=== PATIENT | male | born 1950 | race Caucasian/White ===

== ENCOUNTER → 2021-03-23 10:23 | Outpatient (CLI) | payer MEDICARE, SELFPAY ==
--- NOTE | 2021-03-23 10:32 | XR_ITS ---
PROCEDURE: XR CHEST 2V CLINICAL HISTORY: CARDIAC DYSRHYTHMIA, UNSPECIFIED COMPARISON: No exams were available for comparison FINDINGS: The cardiomediastinal silhouette and pulmonary vascularity are within normal limits. The lungs are clear without infiltrates, suspicious nodules, or pleural effusions. Minor degenerative changes of the visualized thoracic spine. IMPRESSION: No acute findings. Dictated by: Charmaine Blair 03/23/2021 11:21 Charmaine Blair in OV 03/23/2021 11:21
--- NOTE | 2021-03-23 10:52 | CA_ITS ---
APPROVED REPORT EXAM: Comprehensive 2D, Doppler, and color-flow Echocardiogram [employer] Bus Driver: Yana Patel RVT Ht: 5 ft 10 in Wt: 172lbs BSA: 1.96 BP: 123/65 mmHg Indications: ARRHYTHMIA,SMOKER 2D Dimensions LVOT 2.30 cm (M/F) 1.5-2.5 LA Volume 27.90 mL LA Volume Index 14.30 mL/m2 (M/F) 16-34 M-Mode Dimensions RVDd 3.87 cm (0.9-2.6) LA Diam 3.51 cm (1.9-4.0) LVDd 4.02 cm (3.5-5.7) Ao Diam 2.93 cm (2.0-3.7) LVDs 3.00 cm (3.5-5.7) IVSd 1.48 cm (0.6-1.1) PWd 0.95 cm (0.6-1.1) EF (Teich) 50.60% FS 25.40% EDV (Teich) 70.80 mL TAPSE 2.91 (<1.7) ESV (Teich) 35.00 mL LV Diastology E Decel Time 227.00 (160-240 msec) E/A Ratio 1.2 MED E' 10.40 (< 7 cm/sec) E'/MED E' Ratio 7.06 (>14) LAT E' 9.10 (<10 cm/sec) E/LAT E' Ratio 8.07 (>14) Aortic Valve AO Peak GR. 6.60 mmHg Mitral Valve MV E Max Andrew. 73.00 (40-130 cm/s) MV A Velocity 61.00 (40-130 cm/s) E/A Ratio 1.20 MV Decel. Time 227.00 (160-240 ms) MV PHT 66.00 ms Pulmonary Valve PV Peak Velocity 56.00 (50-150 cm/s) Tricuspid Valve TR P. Velocity 228.00 cm/s RAP Estimate 10.00 mmHg RVSP 30.80 mmHg Left Ventricle Left atrium is mildly enlarged, left ventricle is normal size, there is no concentric left ventricular hypertrophy, visually estimated ejection fraction 55% with no regional wall motion abnormality, diastolic parameters are inconclusive. Right Ventricle Right atrium and right ventricle are mildly enlarged with normal contractility. Aortic Valve Aortic valve is minimally thickened and fibrosed, there is no aortic stenosis or aortic insufficiency. Mitral Valve Mitral valve grossly normal, there is trace mitral regurgitation. Tricuspid Valve Tricuspid grossly normal, there is trace tricuspid regurgitation, tricuspid regurgitation jet velocity is inadequate for calculation of the right ventricular systolic pressure. Pulmonic Valve Pulmonic valve is poorly visualized. Great Vessels Aortic root is normal size. Pericardium No significant pericardial effusion noted. Conclusion 1. Mild biatrial enlargement, normal left ventricular size, visually estimated ejection fraction 55% with no regional wall motion abnormality, diastolic parameters are inconclusive. 2. Mildly enlarged right ventricle with normal contractility. 3. Trace mitral and tricuspid regurgitation. 4. No significant pericardial effusion noted. Electronically signed by : Mike Camejo, 03/23/2021 18:07:32
--- NOTE | 2021-03-23 10:59 | ECG_ITS ---
APPROVED REPORT Exam: Resting ECG HR:48 bpm ECG Measurements Heart Rate 48 AXES MS 186 P 71 QRSd 94 QRS -5 QT 434 T 13 QTc 387 Conclusion Marked sinus bradycardia with premature atrial complexes Abnormal ECG Electronically signed by : Naresh Braga, 03/25/2021 14:31:41
== END ==
PROVIDERS: PCP Family Medicine; Visit Provider Family Medicine
DX: I49.9 Cardiac arrhythmia, unspecified (principal); R94.31 Abnormal electrocardiogram [ECG] [EKG]
CPT/HCPCS: 71046; 93005; 93306

== ENCOUNTER → 2021-12-08 07:39 | Outpatient (CLI) | payer MEDICARE, SELFPAY ==
--- NOTE | 2021-12-08 | CA_ITS ---
APPROVED REPORT Exam: Exercise Treadmill Technologist: Merle Loredo Ht: 5 ft 10 in Wt: 175 lbs BSA: 1.97 m2 HR: 40 bpm BP: 127/72 mmHg Indications: Epigastric pain, GERD Medical History Medications: No home meds,,,,, Stress Test Details Test: Daniel HR Resting HR: 55 bpm Max Heart Rate (APMHR): 151.834564 bpm Max HR Achieved: 135 bpm Target HR (85% APMHR): 128.117742 bpm % of APMHR: 89.40 Recovery HR: 75 bpm BP Resting BP: 130.0/68.0 mmHg Max BP: 186.0/68.0 mmHg Recovery BP: 133.0/58.0 mmHg ECG Resting ECG: Marked sinus bradycardia, PACs Clinical Exercise duration: 08:45 min Highest Stage Achieved: Exercise capacity: 10.1 METs Stress ECG Conclusion Patient exercised 8:45 on Daniel Protocol, into stage III. Test stopped due to shortness of air, leg fatigue. Symptoms: Shortness of air, leg fatigue. No chest pain. Arrhythmias/Ectopy: Occasional PVC. Occasional PAC. Sudden, brief changes in heart rate during recovery. ST-T Changes: Normal ST response to exercise. Conclusion: No ischemic changes or chest pain. Marked bradycardia in pretest and varied heart rate in recovery. May indicate sinus node disease (e.g. samanta-tachy syndrome). Myoview images reported separately. Electronically signed by : Mike Camejo MD 12/08/2021 20:38:59
--- NOTE | 2021-12-08 07:43 | NM_ITS ---
APPROVED REPORT Exam: Nuclear Stress Test Indication: HYPERLIPIDEMIA, TOB USE, FM HX, C.P. Patient Location: Outpatient Stress Tech: Merle Loredo AL Tech:JUAN Jones RT (R)(N)(M) Ht: 5 ft 10 in Wt: 175 lbs HR: 40 bpm BP: 127/72 mmHg BSA: 1.97 m2 BMI: 25.1 History: HYPERLIPIDEMIA, TOB USE, FM HX, C.P. Procedure: Patient exercised on Daniel protocol 8:45 minutes and sec, resting heart rate 40 bpm, resting blood pressure 127/72 mmHg, with exercise maximum heart rate achived was 112 bpm which is 89 % of the maximum predicted heart rate and blood pressure was 170/60 mmHg. Test was stopped due to FATIGUE. Patient denied any complaint of chest pain. Patient has good exercise capacity, achieved 10.1 METs of workload on treadmill, the blood pressure response to exercise was Adequate. Electrocardiogram Resting electrocardiogram shows sinus rhythm with exercise there is less than 1.[address] segment depression noted from the baseline EKG. The EKG portion of the exercise Myoview is negative for ischemia. Cardiac Stress and Resting SPECT Images: Cardiac Stress and Resting SPECT images were obtained using technetium 99m Myoview 31.1 mCi stress and 10.37 mCi at rest. Gated SPECT for analysis of segmental wall motion and calculation of the ejection fraction also done. Cardiac stress and resting SPECT images show uniform myocardial activity without segmental perfusion abnormality, consider ejection fraction is 45% with no regional wall motion abnormality, right ventricle is normal size and contractility. Conclusion: 1. The EKG portion of the exercise Myoview is negative for ischemia, patient is good exercise capacity achieved 10.1 METs of workload on treadmill, the blood pressure response to exercise was adequate, there was no exercise-induced chest discomfort. 2. No scintigraphic evidence of reversible ischemia seen at this level of exercise, compared to ejection fraction 45% with no regional wall motion abnormality, right ventricle is normal size and contractility. 3. Normal exercise Myoview study. Electronically signed by : Mike Camejo MD 12/08/2021 20:41:52
== END ==
PROVIDERS: PCP Family Medicine; Visit Provider Family Medicine
DX: R10.13 Epigastric pain (principal); R06.09 Other forms of dyspnea; R07.89 Other chest pain; E78.5 Hyperlipidemia, unspecified; Z82.49 Family history of ischemic heart disease and other diseases of the circulatory system; Z72.0 Tobacco use; R94.31 Abnormal electrocardiogram [ECG] [EKG]
CPT/HCPCS: 78452; 93017; A9502

== ENCOUNTER → 2023-03-01 08:49 | Outpatient (CLI) | payer MEDICARE, SELFPAY ==
[2023-03-01 18:39] LABS: Basophils # 0.1 K/mm3 (0-0.2); Basophils % 0.8 % (0.1-2.0); Eosinophils # 0.3 K/mm3 (0.0-0.4); Hematocrit 48.6 % (42.0-52.0); Hemoglobin 15.1 g/dL (14.1-18.0); Lymphocytes # 2.8 K/mm3 (0.7-4.5); Lymphocytes % 36.3 % (10-50); Mean Corpuscular HGB Conc 31.2 g/dL (31.8-35.4); Mean Corpuscular Hemoglobin 30.8 pg (27.0-31.2); Mean Corpuscular Volume 98.9 fl (80-94); Mean Platelet Volume 9.4 fl (7.4-10.4); Monocytes # 0.6 K/mm3 (0.1-1.0); Monocytes % 7.7 % (1.7-9.3); Neutrophils # 3.9 K/mm3 (1.8-7.8); Neutrophils % 51.2 % (37.0-80.0); Platelet Count 289 K/mm3 (142-424); Red Blood Count 4.92 M/mm3 (4.60-6.20); Red Cell Distribution Width 13.7 % (11.5-17.5); White Blood Count 7.7 K/mm3 (4.8-10.8)
[2023-03-01 18:40] LABS: Chloride 103 mmol/L (98-107); Potassium 4.8 mmoL/L (3.5-5.1); Sodium 138 mmol/L (136-145)
[2023-03-01 18:43] LABS: Alanine Aminotransferase 14 U/L (12-78); Albumin Level 3.9 g/dl (3.5-5.0); Albumin/Globulin Ratio 1.4 (1.1-1.8); Alkaline Phosphatase 97 U/L (38-126); Amylase 102 U/L (30-110); Anion Gap 12.8 mEq/L (5-15); Aspartate Amino Transferase 20 U/L (17-59); Bilirubin,Total 0.5 mg/dl (0.2-1.3); Blood Urea Nitrogen 16 mg/dl (9-20); Calcium 9.3 mg/dl (8.4-10.2); Carbon Dioxide 27 mmol/L (22.0-30.0); Estimated Glomerular Filt Rate 60 ml/min (>60); GFR (African American) 72 ML/MIN (>60); Globulin 2.7 g/dL (1.3-3.2); Glucose 87 mg/dl (74-100); Lipase 323 U/L (23-300); Total Protein,Serum 6.6 g/dl (6.3-8.2)
== END ==
PROVIDERS: PCP Nurse Practitioner; Visit Provider Nurse Practitioner
DX: R10.13 Epigastric pain (principal); R10.9 Unspecified abdominal pain; R11.2 Nausea with vomiting, unspecified
CPT/HCPCS: 80053; 82150; 83690; 85025

== ENCOUNTER → 2023-03-02 18:59 | Outpatient (CLI) | payer MEDICARE, SELFPAY ==
[2023-03-05 09:09] LABS: H. pylori Stool Ag, EIA Positive (Negative)
== END ==
PROVIDERS: PCP Nurse Practitioner; Visit Provider Nurse Practitioner
DX: R10.13 Epigastric pain (principal); R11.2 Nausea with vomiting, unspecified
CPT/HCPCS: 87338

== ENCOUNTER → 2023-03-03 11:57 | Outpatient (CLI) | payer MEDICARE, SELFPAY ==
--- NOTE | 2023-03-03 12:03 | CT_ITS ---
FINAL REPORT TECHNIQUE: Axial CT images of the abdomen were obtained with IV contrast only. Coronal reformatted images were also obtained. This study was performed with techniques to keep radiation doses as low as reasonably achievable (ALARA). Individualized dose reduction techniques using automated exposure control or adjustment of mA and/or kV according to the patient''s size were employed. CLINICAL HISTORY: elevated lipase, epigastric pain, nausea/vomiting FINDINGS: The lung bases are clear. The liver has an unremarkable appearance, without evidence of mass. The gallbladder appears normal without evidence of gallstones. There is no evidence of biliary ductal dilatation. The pancreas appears normal. The spleen size is within normal limits. There is no evidence of renal mass or hydronephrosis. There is no evidence of adenopathy. No abnormal fluid collection is seen. No localized inflammatory processes identified. IMPRESSION: No mass or localized inflammatory process identified. Reviewed, Interpreted and Dictated by Lazaro Parry III, MD Transcribed by Annmarie Cespedes Authenticated and [facility]
--- NOTE | 2023-03-03 12:12 | US_ITS ---
FINAL REPORT CLINICAL HISTORY: epigastric pain with nausea and vomiting FINDINGS: Sonographic images of the right upper quadrant were obtained. The pancreas is partially obscured.The liver has an unremarkable appearance.The gallbladder appears normal without evidence of gallstones.There is no evidence of biliary ductal dilatation.The common duct measures 2 mm. Limited images of the right kidney are unremarkable. IMPRESSION: Unremarkable right upper quadrant ultrasound. Reviewed, Interpreted and Dictated by Lazaro Parry III, MD Transcribed by Aditi Hermosillo Authenticated and [facility]
== END ==
PROVIDERS: PCP Family Medicine; Visit Provider Nurse Practitioner
DX: R10.13 Epigastric pain (principal); R11.2 Nausea with vomiting, unspecified; R74.8 Abnormal levels of other serum enzymes
CPT/HCPCS: 74160; 76705; Q9967

== ENCOUNTER 2025-02-18 11:22 | Outpatient (CLI) | payer MEDICARE, SELFPAY ==
--- OUTSIDE RECORDS SUMMARY | 2024-09-26 06:00 | XMS_ITS | Continuity of Care Document ---
Author Name [facility] Organization [facility] Care Team Providers Care Accounting Manager Name Role Phone [facility] Unavailable Unavailable Problems Combined list of problems from Department of Defense and [facility] facilities. It does not include entries that were removed or entered in error. Problem Status Onset Date Problem Type Date of Resolution Comments Source Diagnosis: ICD-10-CM Z46.1 Encounter for fitting and adjustment of hearing aid Active Diagnosis [facility] Diagnosis: ICD-10-CM H90.3 Sensorineural hearing loss, bilateral Active Diagnosis [facility] Diagnosis: ICD-10-CM H25.11 Age-related nuclear cataract, right eye Active Diagnosis [facility] Encounters Combined list of: 1) Encounters from Department of Veterans Affairs facilities going backup to the last 18 months, not all VA inpatient encounters are included; 2) Encounters from the Department of [facility] facilities going backup to 280 months. Location Location Details Encounter Type Encounter Number Reason For Visit Attending Provider ADM Date DC Date Status Disposition Source [facility] SPEECH AUDIOMETRY COMPLETE [id number] Diagnos is: ICD-10- CM H90.3 Sensori neural hearing loss, bilater al RADHA CASILLAS Rober 10/30 [facility] CONFORMITY EVALUATION [id number] Diagnos is: ICD-10- CM Z46.1 Encount er for fitting and adjustm ent of hearing aid RADHA CASILLAS Rober 11/15 [facility] En[facility] [id number] 11/16 [facility] HEARING AID REPAIR/MOD IFYING [id number] Diagnos is: ICD-10- CM Z46.1 Encount er for fitting and adjustm ent of hearing aid EV PADILLA 07/08 [facility] Outpatient Encounter [id number] 08/05 [facility] En[facility] [id number] 08/05 [facility] COMPRE OPH EXAM NEW PT 1/> [id number] Diagnos is: ICD-10- CM H25.11 Age-rel ated nuclear catarac t, right eye ROMANA MAN MELLISA 08/06 [facility] COMPREHENS LUISA HEARING TEST [id number] Diagnos is: ICD-10- CM H90.3 Sensori neural hearing loss, bilater al EV PADILLA ROSEMARY 08/23 [facility] CONFORMITY EVALUATION [id number] Diagnos is: ICD-10- CM Z46.1 Encount er for fitting and adjustm ent of hearing aid EV PADILLA ROSEMARY [facility]
[2025-02-18 18:59] LABS: Basophils # 0.1 K/mm3 (0-0.2); Basophils % 1.2 % (0.1-2.0); Eosinophils # 0.3 Kmm3 (0.0-0.4); Hematocrit 41.1 % (42.0-52.0); Hemoglobin 13.9 g/dL (14.1-18.0); Immature Granulocytes # 0.01 10^3uL; Immature Granulocytes % 0.2 %; Lymphocytes # 2.3 K/mm3 (0.7-4.5); Lymphocytes % 39.5 % (10-50); Mean Corpuscular HGB Conc 33.8 g/dL (31.8-35.4); Mean Corpuscular Hemoglobin 32.2 pg (27.0-31.2); Mean Corpuscular Volume 95.1 fl (80-94); Mean Platelet Volume 10.1 fl (7.4-10.4); Monocytes # 0.5 K/mm3 (0.1-1.0); Monocytes % 8.5 % (1.7-9.3); Neutrophils # 2.6 K/mm3 (1.8-7.8); Neutrophils % 45.6 % (37.0-80.0); Nucleated Red Blood Cells # 0 10^3/uL; Nucleated Red Blood Cells % 0 %; Platelet Count 252 K/mm3 (142-424); Red Blood Count 4.32 M/mm3 (4.60-6.20); White Blood Count 5.8 K/mm3 (4.8-10.8)
[2025-02-18 19:18] LABS: Microalbumin/Creatinine Ratio 70.3
[2025-02-18 19:19] LABS: Creatinine,Urine Random 29 mg/dL (Not Estab.)
[2025-02-18 19:48] LABS: Alanine Aminotransferase 16 U/L (12-78); Albumin/Globulin Ratio 1.5 (1.1-1.8); Alkaline Phosphatase 97 U/L (38-126); Anion Gap 5.2 mEq/L (5-15); Aspartate Amino Transferase 21 U/L (17-59); Bilirubin,Total 0.6 mg/dl (0.2-1.3); Blood Urea Nitrogen 16 mg/dl (9-20); Calcium 9.8 mg/dl (8.4-10.2); Carbon Dioxide 27 mmol/L (22.0-30.0); Chloride 109 mmol/L (98-107); Chol/HDL Ratio 5.8 (1-3.5); Cholesterol 193 mg/dl (140-200); Estimated Glomerular Filt Rate 60 ml/min (>60); GFR (African American) 72 ML/MIN (>60); Globulin 2.6 g/dL (1.3-3.2); Glucose 100 mg/dl (74-100); HDL Cholesterol 33 mg/dl (40-60); Potassium 4.2 mmoL/L (3.5-5.1); Sodium 137 mmol/L (136-145); Total Protein,Serum 6.6 g/dl (6.3-8.2); Triglycerides 168 mg/dl (30-150); VLDL Cholesterol 34 mg/dL (0-40)
[2025-02-18 19:59] LABS: Direct LDL Cholesterol 122.95 mg/dL (100-129)
[2025-02-18 20:20] LABS: Prostate Specific Ag Screen 0.9 ng/ml (0.0-4.0); Thyroid Stimulating Hormone 3.29 uIU/mL (0.465-4.68)
[2025-02-18 20:37] LABS: Vitamin B12 614 pg/mL (239-931)
--- OUTSIDE RECORDS SUMMARY | 2025-02-19 09:34 | XMS_ITS | Clinical Summary ---
Author Organization [facility] Address [address] [place] [address] Phone Care Team Providers Care Real Estate Operations Manager Name Role Phone Unavailable Primary Care Provider Unavailabl e Allergies No known active allergies Medications diclofenac (VOLTAREN) 75 mg Oral Tablet, Delayed Release (E.C.)Indication s:Knee injuries, right, initial encounter Take 1 Tab by mouth 2 times daily (with meals). 30 Tab 2 12/14/2020 Active rosuvastatin (CRESTOR) 5 mg Oral TabletIndication s:Hypercholester emia Take 1 Tab by mouth nightly. 90 Tab 3 12/14/2020 Active Active Problems Problem Noted Date Diagnosed Date ED (erectile dysfunction) 09/22/2012 Needs smoking cessation education 09/22/2012 Hypercholesteremia 12/17/2010 Resolved Problems Problem Noted Date Diagnosed Date Resolved Date FH: hypercholesterolemia 12/17/2010 Immunizations Immunization Administration Dates Next Due Pneumococcal Conjugate Vaccine 13 Valent 017 Pneumococcal Polysaccharide 23 Valent 10/22/2018 Td, Unspecified Formulation 10/21/2008 Tdap 11/17/2014 Zoster 11/17/2014 Surgical History Surgery Date Site/Laterality Comments COLONOSCOPY 09/21/06 f/u 10 years Social History Tobacco Use Types Packs/Day Years Used Date Smoking Tobacco: Every Day Cigarettes 1 52.5 Started: 09/04/1972 Smokeless Tobacco: Never Tobacco Cessation:Ready to Q uit: No; Counseling Given: No Comments:cutting back on smoking. Alcohol Use Standard Drinks/Week Comments Not Asked 0 (1 standard drink = 0.6 oz pur e alcohol) PHQ-2 Answer Date Recorded PHQ-2 Total Score 0 08/13/2020 Sex and Gender Information Value Date Recorded Sex Assigned at Not on file Legal Sex Male 7:31 PM EDT Gender Identity Not on file Sexual Orientation Not on file Obstetrics History Last Filed Vital Signs Vital Sign Reading Time Taken Comments Blood Pressure 94/60 08/13/2020 7:52 AM EST Pulse 58 08/13/2020 7:52 AM EST Temperature 36.7 C (98 F) 12/14/2020 2:21 PM EDT Respiratory Rate 16 12/14/2020 2:21 PM EDT Oxygen Saturation 98% 08/13/2020 7:52 AM EST Inhaled Oxygen Concentration - - Weight 81.9 kg (180 lb 9.6 oz) 12/14/2020 2:21 P M EDT Height 177.8 cm (5' 10 ) 12/14/2020 2:21 PM EDT Body Mass Index 25.91 12/14/2020 2:21 PM EDT Plan of Treatment Health Maintenance Due Date Last Done Comments Wellness Exam Medicare 1953 Cologuard 1997 FIT 1997 Sigmoidoscopy 1997 Virtual Colonography 1997 Zoster (2 of 3) 01/12/2015 11/17/2014 Low Dose Lung Cancer Screening 12/10/2021 0 12/10/2020, 09/09/2020 Colon Cancer Screening 08/22/2022 Colonoscopy 08/22/2022 08/22/2017, 08/22/2017 COVID-19 Vaccine (1 - 2023-2 5 season) 2024 DTaP/TDaP/Td (2 - Td or Tdap) 11/17/2024, 10/21/2008 Influenza Vaccine (Season Ended) 2025 11/17/2014 (Declined) Hepatitis C Screening Completed 03/10/2017 , 03/10/2017 Pneumococcal Vaccine 50+ Completed 019, 03/10/2017 Hepatitis B Vaccine Aged Out No longe r eligible based on patient's age to complete this topic Meningococcal B Vaccine Aged Out No l onger eligible based on patient's age to complete this topic Goals Goal Patient Goal Type Associated Problems Recent Progress Patient-Stated? Author Maintain a healthy diet, exercise regularly and maintain an ideal body weight General No Slim Meléndez RMA Stay Tobacco Free Lifestyle No Slim Meléndez RMA LDL CALC < 130 Result Component 53(08/13/2020 8:21 AM EST) Justice Justin MD Procedures Procedure Name Priority Date/Time Associated Diagnosis Comments CT [facility] LUNG CANCER SCREENING FOLLOW UP Routine 12/10/2020 7:46 AM EDT Lung nodule [facility] COLONOSCOPY Routine 08/22/2017 8:20 AM EST HCV ANTIBODY SCREEN W/ REFLEX Routine 03/10/2017 11:38 AM EDT Need for hepatitis C screening test from Last 3 Months or Most Recently Relevant to Health Maintenance Results * CT [facility] LUNG CANCER SCREENING FOLLOW UP (12/10/2020 7:46 AM EDT) Anatomical Region Laterality Modality Chest Computed Tomogra phy 12/10/2020 7:46 AM EDT Addenda Addendum by Kiko Yarbrough MD on 12/14/2020 4:28 PM EDT ADDENDUM: The multidisciplinary pulmonary nodule evaluation board has reviewed this nodule and made the following recommendation based on the size and morphologic characteristics of the nodule, integrating old films for comparison when available. The likelihood of a primary lung cancer is felt to be Intermediate Recommendation: fabrication technician will place the follow-up low dose, non-contrast chest CT order. Please co-sign the order: 6 months - [id number] - CT LUNG CANCER SCREENING FOLLOW UP The Multidisciplinary Team that reviewed this case was: Pulmonology: Tomy Toscano MD Radiology: Kiko Yarbrough MD Thoracic Surgery: Dav Manuel MD Impressions 12/10/2020 1:28 PM EDT : Stable CT chest compared with September 09, 2020. Additional follow-up per nodule committee. RECOMMENDATION: Nodule Rev A summary letter communicating these results will be mailed to the patient's address of record. - Note: Radiology results need to be interpreted within a comprehensive clinical context. If you have questions about the radiology report, please contact the office of the ordering clinician. [email or web address] Narrative 12/10/2020 1:[address] [facility] LUNG CANCER SCREENING FOLLOW UP 12/10/2020 7:46 AM CLINICAL HISTORY: Asymptomatic patient meeting NCCN high risk criteria for lung screening. R91.1-Solitary pulmonary [id number]. COMPARISON: September 09, 2020 PROCEDURE COMMENTS: Noncontrast, low-dose, multidetector CT chest per department protocol. Interactive 3-D postprocessing done by the reviewing physician on a [employer] workstation, using Maximum intensity projections (MIPS) and [employer] LUNG CAD for improved lesion detection. Ball images archived to PACS.Automated exposure control for dose reduction was used. CTDIvol: 1.9 mGy. DLP: 75 mGy-cm. FINDINGS: Redemonstration noncalcified nodule measuring 8.2 x 7.8 mm in the LEFT lower lobe. No new or developing lesion. Stable granulomatous changes. Coronary artery calcification: Moderate. FOLLOW-UP CODE: Lung-RADS Category 4A: Suspicious finding. Findings for which additional diagnostic testing is recommended. us Justice Adamson MD IMG CT ORDERABLES Edited Result - Final * [facility] COLONOSCOPY (08/22/2017 8:20 AM EST) 08/22/2017 8:20 AM EST Narrative [facility] - 08/22/2017 8:20 AM EST [facility] [address] [place], [place] [id number] Colonoscopy Report Date: 08/22/2017 8:20 AM Patient Name: LAZARO MULLER Endoscopist(s): Patrice Clark MD Gender: Male (age): 1950 (66) Instrument(s): C-5([id number]) Referring Physician: Justice Adamson MD [address] [place] [phone] (phone) (fax) Anesthesia Provider: TRAY Gaines (Nurse specialties operator) Nurse(s): Ciara Tate, RN, BSN (Post-Procedure) Justine Russell RN, BSN (Pre-Procedure) Claritza Parks RN (Intra-Procedure) ASA Class: P2 - 08/22/2017 7:38 AM KALIE Ordaz History of Present Illness: LAZARO has been assessed and approved for moderate sedation. The History and Physical was reviewed and no changes were noted regarding medications, allergies or medical history. Administered Medications: lidocaine (PF) 40 mg IV propofol 400 mg IV Indications: Screening for colonic neoplasia: V76.51 - Z12.11 Vital Signs: Weight (lbs/oz) Height (ft/in) BMI 185.6 / 5 / 10 26.63 BP (mmHg) Pulse (ppm) Rhythm Resp/min Temp SPO2 (%) 131/84 59 Regular 14 97 (F) 98 Physical Exam: Physical exam was performed on 08/22/2017 at 7:30 AM. Constitutional: Appearance: well nourished,well-developed, well groomed, in no acute distress.. ENMT: Lips/teeth/gums: normal oral mucosa, lips and gums; good dentition. Oropharynx: tongue mid line, normal movement, mucous membranes pink and moist, no oral lesions or exudate. Neck: Neck: normal ROM. Respiratory: Effort: non labored, normal effort. Auscultation: clear to ausculatation bilaterally; no wheezes, rhonchi or rales. Cardiovascular: Auscultation: normal rate and rhythm; normal S1 and S2; no murmurs, rubs or gallops. Gastrointestinal/Abdomen: Abdomen: flat, soft, nontender, nondistended, no hepatosplenomegaly, no guarding, no rebound, no masses, normal bowel sounds. Liver/Spleen: no hepatosplenomegaly. Psychiatric: Orientation: oriented to time, space and person. Mood and affect: no evidence of depression, anxiety or agitation. Procedure: The procedure, indications, preparation and potential complications were explained to the patient, who indicated understanding and signed the corresponding consent forms. This is a/an average risk patient undergoing a Screening colonoscopy... MAC with IV sedation was administered by a nurse specialties operator / anesthesiologist. Continuous pulse oximetry, cardiac monitoring blood pressure and CO2 monitoring were performed. Supplemental oxygen was used. The quality of preparation was Adequate. Patient was placed in left lateral decubitus position. The colonoscope was introduced through the rectum and advanced under direct visualization until cecum, appendiceal orifice, ileo-cecal valve and terminal ileum was reached The appendiceal orifice and the ileo-cecal valve were identified.. The colonoscope was retroflexed within the rectum. Careful visualization was performed as the instrument was withdrawn. Patient tolerance to procedure was good. The procedure was not difficult. Digital rectal exam was normal Limitations/Complications: There were no apparent limitations or complications Findings: Excavated lesions Multiple diverticula were seen in the whole colon. Diverticulosis appeared to be severe. Protruding lesions Three sessile polyps of benign appearance ranging in size from 3 mm to 5 mm were found in the ascending colon (1) and sigmoid colon (2). A single-piece polypectomy was performed using a cold forceps. The polyps were completely removed. No postpolypectomy bleeding. A small lipoma was seen in the sigmoid colon. Hypertrophied anal papillae was noted. Impressions: Severe diverticulosis of the whole colon. Polyps (3 mm to 5 mm) in the ascending colon (1) and sigmoid colon (2). (Polypectomy). Lipoma in the sigmoid colon. Hypertrophied Anal Papillae in the anus. Plan: Await biopsy results. I will send a letter with the results.Result Letter to be mailed upon review of today's pathology. If you have not heard from us in 3-4 weeks,please give us a call at [phone] Colonoscopy in 5 years. Colon Polyps and Colon Cancer Education Diverticulosis and Diverticulitis Education High Fiber Diet Education Samples: Jar # 1 : Polypectomy in the ascending colon Findings: Polyp Test(s) requested: Histology Jar # 2 : Polypectomy in the sigmoid colon Findings: Polyp Test(s) requested: Histology Pathology: Pathology was sent to lab, waiting for results Patrice Clark MD Electronically signed on 08/22/2017 9:13:25 AM by Patrice Clark MD us Patrice Clark III, MD GI PROCEDURE ORDERABLES Fi nal Result [facility] [address] [phone] * HEPATITIS C ANTIBODY - SCREENING (03/10/2017 11:38 AM EDT) Hep C Ab Negative Negative [facility] Blood specimen (specimen) 03/10/2017 11:38 AM EDT 03/10/2017 2:16 PM EDT Justice Adamson MD HEMATOLOGY ORDERABLES Fin al Result [facility] [address] [place] [id number] from Last 3 Months or Most Recently Relevant to Health Maintenance Insurance MEDICARE [place] PART A AND B SUPPLEMENTAL AARP SUPPLEMENTAL MEDICARE [place] PART A AND B Member Subscriber Plan / Payer ( fective 2017-Present) Name:Lazaro Muller Member ID:[id number] Relation to Subscriber:Self Name:Lazaro Muller Subscriber ID:[id number] Payer ID:Not on file Group ID:Not on file Type:Not on file Address: [address] [place] [address] SUPPLEMENTAL
--- OUTSIDE RECORDS SUMMARY | 2025-02-19 09:34 | XMS_ITS | Clinical Summary ---
Author Organization [facility] Address [address] [place] [address] Care Team Providers Care Filter Machine Operator Name Role Phone Justice Adamson MD Primary Care Provider Un available Social History Tobacco Use Types Packs/Day Years Used Date Smoking Tobacco: Never Assessed Sex and Gender Information Value Date Recorded Sex Assigned at Not on file Legal Sex Male 11:31 AM EST Gender Identity Not on file Sexual Orientation Not on file Plan of Treatment Not on file Advance Directives Documents on File Type Date Recorded Patient Medical Imaging Technician Expl anation ACP-Advance Directive 01/11/2011 9:32 AM Care Teams Filter Machine Operator Relationship Specialty Start Date End Date Justice Adamson MD PCP - General 01/03/11
== END 2025-02-18 23:59 | disposition home or self-care (01) ==
LOC: LAB.DROPOF 02-19 09:29
PROVIDERS: PCP Family Medicine; Visit Provider Family Medicine
DX: E78.5 Hyperlipidemia, unspecified (principal); N40.0 Benign prostatic hyperplasia without lower urinary tract symptoms; Z86.79 Personal history of other diseases of the circulatory system
CPT/HCPCS: 80053; 80061; 82043; 82570; 82607; 84443; 85025; G0103